=== PATIENT | female | born 1990 | race American Indian/Alaskan Native ===

== ENCOUNTER 2020-08-25 20:35 | Emergency (ER) | payer OTHER ==
[2020-08-25 23:03] LABS: Absolute Lymphocytes (CBC) 1.3 K/uL (0.7-4.9); Basophils % 0.1 % (0-1.3); Hematocrit 37.6 % (36.0-45.0); Lymphocytes % 17.3 % (15.3-44.8); MPV 10.8 fL (7.6-11.3); RBC Red Blood Cell Count 4.88 M/uL (3.86-4.86)
--- NOTE | 2020-08-25 23:08 | ER ---
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 Needle stick occurred at 1130 today. Coronavirus screen: Client denies travel out of the [place] in the last 14 days. At this time, the client does not indicate any symptoms associated with coronavirus-19. Ebola Screen: Patient negative for fever greater than or equal to 101.5 degrees Fahrenheit, and additional compatible Ebola Virus Disease symptoms Patient denies exposure to infectious person. Patient denies travel to an Ebola-affected area in the 21 days before illness onset. Initial Sepsis Screen: Does the patient meet any 2 criteria? No. Patient's initial sepsis screen is negative. Does the patient have a suspected source of infection? No. Patient's initial sepsis screen is negative. Risk Assessment: Do you want to hurt yourself or someone else? Patient reports no desire to harm self or others. Onset of symptoms was August 25, 2020 at 11:30. 20:57 Method Of Arrival: Ambulatory lm7 20:57 Acuity: SCOTT 4 lm7 Triage Assessment: 21:02 General: Appears in no apparent distress. comfortable, Behavior is calm, cooperative. lm7 Pain: Denies pain. Respiratory: No deficits noted. Derm: small bruise, blue in color, noted to pad of 2nd digit of left hand, tender to palpation. 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 - Social history:: Smoking status: Patient denies any tobacco usage or history of. Screenin:58 Abuse screen: Denies threats or abuse. Denies injuries from another. Nutritional iw screening: No deficits noted. Tuberculosis screening: No symptoms or risk factors identified. Fall Risk None identified. Assessment: 21:57 General: Appears in no apparent distress. comfortable, Behavior is calm, cooperative. iw Neuro: Level of Consciousness is awake, alert, obeys commands, Oriented to person, place, time, situation. Cardiovascular: Patient's skin is warm and dry. Respiratory: Respiratory effort is even, unlabored, Respiratory pattern is regular. Derm: Skin is intact, is healthy with good turgor. Musculoskeletal: Range of motion: intact in all extremities. Vital Signs: 20:57 BP 113 / 82; Pulse 63; Resp 15; Temp 97.3(O); Pulse Ox 100% on R/A; Weight 48.99 kg lm7 (R); Height 5 ft. 4 in. (162.56 cm) (R); Pain 0/10; 20:57 Body Mass Index 18.54 (48.99 kg, 162.56 cm) lm7 ED Course: 20:38 Patient arrived in ED. am4 21:02 Triage completed. lm7 21:02 Arm band placed on left wrist. lm7 21:40 Gayle Dailey RN is Primary Nurse. iw 21:51 Michael Cornejo PA is PHCP. cp 21:51 Gamal Gonzalez MD is Attending Physician. cp 21:57 Patient has correct armband on for positive identification. iw 22:59 Initial lab(s) drawn, by me, sent to lab. iw 23:17 No provider procedures requiring assistance completed. Patient did not have IV access iw during this emergency room visit. Administered Medications: No medications were administered Outcome: 23:07 Discharge ordered by . cp 23:17 Discharged to home ambulatory. iw 23:17 Condition: good 23:17 Discharge instructions given to patient, Instructed on discharge instructions, follow up and referral plans. Demonstrated understanding of instructions, follow-up care. 23:18 Patient left the ED. iw Signatures: Gayle Dailey, RN RN iw Mary Richardson lm7 Michael Cornejo PA PA Mague Dunlap am4
--- NOTE | 2020-08-25 23:08 | EDPHYS ---
Physician Documentation [facility] Name: Juliann Rocha Age: 30 yrs Sex: Female : 1990 Arrival Date: 08/25/2020 Time: 20:38 Bed 30 Private MD: ED Physician Gamal Gonzalez HPI: 08/25 22:15 This 30 yrs old Female presents to ER via Ambulatory with complaints of cp Needle Stick Exposure. 22:15 The patient or guardian reports a puncture wound, from a needle. cp 22:15 The complaints affect the mccabe side distal phalanx left index finger. Context: The cp problem was sustained at work. Onset: The symptoms/episode began/occurred today, at 11:30. Associated signs and symptoms: The patient has no apparent associated signs or symptoms. 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 - Social history:: Smoking status: Patient denies any tobacco usage or history of. ROS: 22:20 Skin: Positive for puncture, of the mccabe side distal phalanx left index finger. cp Exam: 22:25 Constitutional: The patient appears in no acute distress, alert, awake, non-toxic, well cp developed, well nourished. 22:25 Head/Face: Normocephalic, atraumatic. cp 22:25 Chest/axilla: Inspection: normal. 22:25 Cardiovascular: Rate: normal. 22:25 Respiratory: the patient does not display signs of respiratory distress, Respirations: normal, no use of accessory muscles, no retractions, labored breathing, is not present. 22:25 Abdomen/GI: Exam negative for discomfort, distension, guarding, Inspection: abdomen appears normal. 22:25 Skin: injury, that can be described as without bleeding, mild swelling and ecchymosis, puncture(s), that are superficial, of the mccabe side distal phalanx left index finger. Vital Signs: 20:57 BP 113 / 82; Pulse 63; Resp 15; Temp 97.3(O); Pulse Ox 100% on R/A; Weight 48.99 kg lm7 (R); Height 5 ft. 4 in. (162.56 cm) (R); Pain 0/10; 20:57 Body Mass Index 18.54 (48.99 kg, 162.56 cm) lm7 MDM: 22:05 Patient medically screened. cp 22:30 Differential diagnosis: puncture wound, laceration, cellulitis. 23:05 Data reviewed: vital signs, nurses notes. 23:05 Counseling: I had a detailed discussion with the patient and/or guardian regarding: the cp historical points, exam findings, and any diagnostic results supporting the discharge/admit diagnosis, the need for outpatient follow up, a family practitioner, to return to the emergency department if symptoms worsen or persist or if there are any questions or concerns that arise at home. ED course: VSS. Patient requesting discharge to home due to hour long drive to home. Will call with results of blood work. 08/25 21:58 Order name: Hepatitis Panel,Acute [facility] 08/25 21:58 Order name: HIV AG/AB SCREEN [facility] 08/25 22:15 Order name: CBC with Diff; Complete Time: 00:34 08/26 00:34 Interpretation: Reviewed. 08/25 22:15 Order name: LFT's; Complete Time: 00:34 08/26 00:36 Interpretation: Normal except: TP 8.9; GLOB 4.4; A/G 1.0. 08/25 22:15 Order name: Test, Serum; Complete Time: 00:34 08/26 00:36 Interpretation: Reviewed. 08/25 22:15 Order name: BMP; Complete Time: 00:34 08/26 00:36 Interpretation: Normal except: CRE 0.51. 08/25 23:15 Order name: Urine Dipstick-Ancillary; Complete Time: 00:34 [facility] 08/26 00:36 Interpretation: Normal except: UKET 2+; UBLD 3+. cp Administered Medications: No medications were administered Disposition: 23:25 Chart complete. 08/26 05:05 Co-signature as Attending Physician, Gamal Gonzalez MD. mh7 Disposition: 08/25/20 23:07 Discharged to Home. Impression: Contact with hypodermic needle, Puncture wound without foreign body of left index finger without damage to nail. - Condition is Stable. - Discharge Instructions: Needlestick Injury. - Prescriptions for Isentress 400 mg Oral tablet - take 1 tablet by ORAL route 2 times per day for 28 days; 56 tablet. Truvada 200- 300 mg Oral tablet - take 1 tablet by ORAL route once daily for 28 days; 28 tablet. Keflex 500 mg Oral Capsule - take 1 capsule by ORAL route every 8 hours for 7 days; 21 capsule. - Medication Reconciliation Form, Thank You Letter, Antibiotic Education, Prescription Opioid Use form. - Follow up: Private Physician; When: 1 week; Reason: Recheck today's complaints. - Problem is new. - Symptoms have improved. Signatures: Dispatcher [employer] Gayle Guerra RN RN iw Minter, Laura lm7 Michael Cornejo PA PA cp Holmes, Maurice, MD MD mh7 Corrections: (The following items were deleted from the chart) 08/25 23:18 23:07 08/25/2020 23:07 Discharged to Home. Impression: Contact with hypodermic needle; iw Puncture wound without foreign body of left index finger without damage to nail. Condition is Stable. Prescriptions for Isentress 400 mg Oral tablet - take 1 tablet by ORAL route 2 times per day for 28 days; 56 tablet, Truvada 200-300 mg Oral tablet - take 1 tablet by ORAL route once daily for 28 days; 28 tablet, Keflex 500 mg Oral Capsule - take 1 capsule by ORAL route every 8 hours for 7 days; 21 capsule. and Forms are Medication Reconciliation Form, Thank You Letter, Antibiotic Education, Prescription Opioid Use. Follow up: Private Physician; When: 1 week; Reason: Recheck today's complaints. Problem is new. Symptoms have improved. cp 08/26 00:38 08/25 22:15 Onset: The symptoms/episode began/occurred today, at 11:00, cp cp
[2020-08-25 23:15] LABS: Urine Blood 3+ (Negative); Urine Glucose Negative (Negative); Urine Protein Negative (Negative); Urine pH 6.5 (5.0-7.0)
[2020-08-25 23:18] LABS: ALT/SGPT 40 U/L (12-78); AST/SGOT 21 U/L (15-37); Albumin 4.5 g/dL (3.4-5.0); Alkaline Phosphatase 67 U/L (45-117); BUN Blood Urea Nitrogen 12 mg/dL (7-18); Bicarbonate 24 mmol/L (21-32); Bilirubin Direct 0.1 mg/dL (0-0.2); Bilirubin Total 0.3 mg/dL (0.2-1.0); Glucose Level 82 mg/dL (74-106); Potassium 3.9 mmol/L (3.5-5.1); Protein, Total 8.9 g/dL (6.4-8.2); Sodium Level 137 mmol/L (136-145)
[2020-08-25 23:23] VITALS: BP 113/82; TEMP 97.3; O2SAT 100
[2020-08-28 13:58] LABS: HIV AG/AB 4TH GEN Non-reactive (Non-reactive)
[2020-08-29 18:43] LABS: HBsAG Nonreactive (Nonreactive)
== END 2020-08-25 23:18 | disposition home or self-care (01) ==
LOC: ER 20:35
DX: S61.231A Puncture wound without foreign body of left index finger without damage to nail, initial encounter (principal); W46.0XXA Contact with hypodermic needle, initial encounter; Z91.040 Latex allergy status; Z91.048 Other nonmedicinal substance allergy status
CPT/HCPCS: 36415; 80048; 80074; 80076; 81003; 84703; 85025; 87389; 99283